=== PATIENT | male | born 1945 | race Caucasian/White ===

== ENCOUNTER 2025-02-04 12:01 | Inpatient (IN) | payer MEDICARE, SELFPAY ==
[2025-02-04] VITALS (7 sets, daily range): BP systolic 110–117; BP diastolic 73–82; PULSE 93–112; RESP 18–26; TEMP 36.1–36.6; O2SAT 94–99; BMI 25.8
--- NOTE | 2025-02-04 12:05 | EKG_ITS ---
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
--- NOTE | 2025-02-04 12:27 | EDRME_ITS ---
Rapid Medical Screening Exam RME Arrival date/time: 02/04/25 12:01 87-year-old male with no known medical history presents to the emergency room with a chief complaint of shortness of breath x 3 days. Patient states he was seen at [facility] today and was sent to the emergency room due to an abnormal EKG. I have greeted and performed a focused initial assessment of this patient. A comprehensive ED assessment and evaluation of the patient, analysis of all test results, and completion of the medical decision making process will be conducted by additional ED providers. Chief Complaint: Shortness of Breath/Dyspnea Time Seen by Provider: 02/04/25 12:23 Vital signs reviewed by provider: Yes
--- NOTE | 2025-02-04 12:27 | XR_ITS ---
EXAMINATION: PA lateral chest 2 views TECHNIQUE: Upright PA lateral chest 2 views Date and time: February 04, 2025, 12:33 p.m. INDICATIONS: Chest pain today FINDINGS: Early bibasilar pneumonia. Normal heart size. The osseous structures are intact IMPRESSION: Early pneumonia both bases
[2025-02-04 13:18] LABS: Basophils # (Auto) 0.0 Thou/mm3 (0.0-0.2); Basophils % (Auto) 0 % (0-2.5); Eosinophils # (Auto) 0.0 Thou/mm3 (0.0-0.5); Eosinophils % (Auto) 0 % (0-10); Hematocrit 40.3 % (41.0-53.0); Hemoglobin 13.8 g/dL (13.5-16.0); Immature Granulocytes Auto 0.02 Thou/mm3 (0.00-0.00); Lymphocytes # (Auto) 0.8 Thou/mm3 (1.0-4.8); Lymphocytes % (Auto) 8 % (10-50); Mean Corpuscular HGB Conc 34.2 g/dl (31.0-37.0); Mean Corpuscular Hemoglobin 33.2 pg (25.0-35.0); Mean Corpuscular Volume 97 fL (80-100); Monocytes # (Auto) 0.5 Thou/mm3 (0.0-0.8); Monocytes % (Auto) 5 % (0-12); Neutrophils # (Auto) 8.0 Thou/mm3 (1.8-7.7); Neutrophils % (Auto) 86 % (37-80); Nucleated Red Blood Cell # 0.00 Thou/mm3 (0.00-0.00); Nucleated Red Blood Cell % 0 /100 WBC (0); Platelet Count 168 Thou/mm3 (140-440); RDW Standard Deviation 48.1 fL (35.1-43.9); Red Blood Count 4.16 Miln/mm3 (4.50-5.90); White Blood Count 9.3 Thou/mm3 (3.8-10.6)
[2025-02-04 13:34] LABS: Collection Type, Urine Clean Catch
[2025-02-04 13:37] LABS: INR 1.1 (0.9-1.3); Partial Thromboplastin Time 29.6 Seconds (22.0-36.0); Prothrombin Time 11.7 Seconds (9.0-12.2)
[2025-02-04 13:46] LABS: Alanine Aminotransferase 38 U/L (10-49); Albumin, Serum 4.9 gm/dL (3.4-4.8); Albumin/Globulin Ratio 1.7 (1.2-2.2); Alkaline Phosphatase 67 U/L (46-116); Anion Gap 18 (7-16); Aspartate Amino Transferase 88 U/L (0-34); BUN/Creatinine Ratio 15 Ratio (12-20); Bilirubin,Total 1.1 mg/dL (0.3-1.2); Blood Urea Nitrogen 18 mg/dL (9-23); Calcium 11.6 mg/dL (8.3-10.6); Calcium (Corrected) 11.6 mg/dL (8.5-10.1); Carbon Dioxide 16.2 mMol/L (20.0-31.0); Chloride 102 mMol/L (98-107); Creatinine (Component) 1.2 mg/dL (0.6-1.3); Estimated Creatinine Clearance 49.1 mL/min (>60); Globulin 2.9 gm/dL (2.3-3.5); Glucose 233 mg/dL (74-106); Magnesium 2.1 mg/dL (1.6-2.6); Osmolality,Calculated 280 (275-295); Potassium 5.0 mMol/L (3.4-5.1); Sodium 136 mMol/L (136-145); Total Protein 7.8 gm/dL (5.7-8.2); eGFR > 60 See Note
[2025-02-04 13:49] LABS: Troponin I 21.328 ng/mL (0.0-0.045)
[2025-02-04 14:07] LABS: Ferritin 290 ng/mL (10.5-307.3)
[2025-02-04 14:21] LABS: B-Type Natriuretic Peptide 2339 pg/mL (0-100)
[2025-02-04 14:23] LABS: Bilirubin,Urine 1+ (Negative); Blood,Urine Negative (Negative); Clarity,Urine Clear (Clear/Hazy); Color,Urine Yellow (Lt Yel-Yel); Culture Indicated,Urine Not Indicated; Glucose, Urine Trace (Negative); Hyaline Casts,Urine 3 /hpf (0-1); Ketones,Urine 2+ (Negative); Nitrite,Urine Negative (Negative); PH,Urine 6.0 (5.0-7.0); Protein,Urine 1+ (Neg - Trace); RBC,Urine 9 /hpf (0-3); Specific Gravity,Urine 1.034 (1.001-1.035); Squamous Epithelial Cell,Urine < 1 /hpf (0-5); Urobilinogen,Urine 3.0 mg/dL (0.0-1.0); WBC,Urine 1 /hpf (0-5)
[2025-02-04 14:31] LABS: Leukocyte Esterase,Urine Negative (Negative)
--- NOTE | 2025-02-04 15:00 | PD.EDSOB ---
ED SOB =RME/HPI General Chief Complaint: Shortness of Breath/Dyspnea Stated Complaint: DIFF BREATHING X 4 D, ABNORMAL EKG AT CLINIC TODAY Time Seen by Provider: 02/04/25 12:23 Arrival date/time: 02/04/25 12:01 RME / HPI RME / HPI Narrative: 02/04/25 12:01 87-year-old male with no known medical history presents to the emergency room with a chief complaint of shortness of breath x 3 days. Patient states he was seen at [facility] today and was sent to the emergency room due to an abnormal EKG. I have greeted and performed a focused initial assessment of this patient. A comprehensive ED assessment and evaluation of the patient, analysis of all test results, and completion of the medical decision making process will be conducted by additional ED providers. DR. BRIAN MAIN ED EVALUATION 79 year old male with history of diabetes presents to the ED for evaluation of shortness of breath and chest pain today. Patient mentioned his shortness of breath began intermittently 2 months ago and worsening in the last 4 days. The chest pain started concurrently with the worsening shortness of breath and is described as an aching sensation located across the chest. Described as aching in sensation, rating as mild-moderate. Additionally, the patient complains of generalized body aches, difficulty sleeping, and a decreased appetite. He is concerned about a possible iron overload, noting that he has been taking an iron supplement and recently started a multivitamin that also contains iron. Patient mentions he consulted with his PCP who performed an EKG in the office and advised to come to the ED for abnormal findings. Denies any fevers, chills, cough, headache, changes in vision, abdominal pain, n/v/d, constipation, leg pain, or urinary symptoms. Patent states he was previously on Metformin. However, states his diabetes is now diet controlled. Related Data Allergies Allergy/AdvReac Type Severity Reaction Status Date / Time No Known Allergies Allergy Verified 02/04/25 12:04 Review of Systems Review of Systems Systems Reviewed: All systems reviewed, normal except as documented Past Medical History Past Medical History ENDOCRINE: Positive Diabetes Mellitus Type 2 Surgical History SURGICAL: Positive of Shoulder Sx and Knee Sx Social History SMOKING STATUS: Never smoker ED Exam Narrative Physical exam: Constitutional: Awake, alert, nontoxic, no acute distress, appears slightly pale HEENT: Normocephalic, atraumatic, extraocular movements intact. Neck: Supple CV: Regular rate and rhythm, no murmurs/rubs/gallops Lungs: Clear to auscultation BL, no respiratory distress. Abd: Soft, NT, ND, no HSM noted to palpation Extremities: No deformities, no edema noted Neuro: AAOx3, CN 2-12 GIBL, no acute neuro deficit noted. Skin: Warm, dry, intact, slightly pale Course Course Course Narrative: 1535h: The patient has early pneumonia noted on chest xray. Labs reviewed and patient has significantly elevated troponin at 21.328 as well as BNP at 2,339. Carbon dioxide low at 16.2 and Anion gap is high at 18 consistent with high anion gap metabolic acidosis. Calcium elevated at 11.6. EKG with nonspecific EKG abnormalities. Added doses of antibiotics as well as heparin drip. 1544h: I spoke with hospitalist team C for admission. 1547h: I spoke with installation coordinator Dr. Aviles. Discussed patients PMHx, HPI, ED course, exam findings, labs, and radiology results. States he will evaluate the patient in the ED. Quality Measures none Orders Category Date Time Status EKG (ED ONLY) *Do not use* NOW Care 02/04/25 12:05 Completed Notify provider NOW Care 02/04/25 15:41 Active EKG (ED Only) Stat Exams 02/04/25 12:05 Draft XR chest 2V Stat Exams 02/04/25 12:27 Completed B-Type Natriuretic Peptide Stat Lab 02/04/25 13:45 Completed CBC Stat Lab 02/04/25 12:58 Completed Comprehensive Metabolic Panel Stat Lab 02/04/25 12:58 Completed Ferritin Stat Lab 02/04/25 12:58 Completed Magnesium Stat Lab 02/04/25 12:58 Completed PTT [Partial Thromboplastin Time] Stat Lab 02/04/25 22:00 Ordered Partial Thromboplastin Time Stat Lab 02/04/25 12:58 Completed Procalcitonin Stat Lab 02/04/25 13:12 Completed Prothrombin Time with INR Stat Lab 02/04/25 12:58 Completed Troponin I Stat Lab 02/04/25 12:58 Completed Urinalysis, C/S if Indicated Stat Lab 02/04/25 13:23 Completed Azithromycin Inj [Zithromax Inj] 500 mg Med 02/04/25 15:38 Discontinued Sodium Chloride 0.9% 250 ml [Ns] 250 ml IV X1 Heparin Inj Med 02/04/25 15:41 Discontinued 4,000 unit IV X1 ONE Heparin/D5w 25K 250 ML Ivpb [Heparin in D5w Ivpb] Med 02/04/25 15:45 Active 25,000 unit in 250 ml IV 12 units/kg/hr cefTRIAXone/D5w 1gm IV premix [Rocephin/D5w 1gm IV Med 02/04/25 15:38 Discontinued premix] 1 gm in 50 ml IV X1 Vital Signs Vital signs: Vital Signs Temperature 98 F 02/04/25 12:35 Pulse Rate 96 02/04/25 12:35 Respiratory Rate 18 02/04/25 12:35 Blood Pressure 111/73 02/04/25 12:35 Pulse Oximetry (%) 99 02/04/25 12:35 Oxygen Delivery Method Room Air 02/04/25 12:35 Pulse ox is 99% on room air which is adequate. Shortness of Breath / Dyspnea MDM Narrative MDM Narrative:: Emelina Saeed am scribing for and in the presence of Dr. Brian. Patient data External records reviewed:: [facility] previous records Clinical information provided by:: patient Social determinants that could affect healthcare access:: none Patient has the following chronic illnesses:: Diabetes How is presenting disease/condition affected by chronic disease/condition?: uneffected by Evaluation data The following diagnostics were reviewed and interpreted by me:: lab results, radiology exam(s) and EKG tracing(s) (EKG @ 12:27p. Sinus rhythm with occasional PVCs, rate 99, nonspecific T-wave abnormalities with flipped T-wave in v5) Lab and/or radiology exams considered but not ordered:: None Interpretation Summary: Ordering Physician: Pierce Olivas Date of Service: 02/04/25 Procedure(s): XR chest 2V Accession Number(s): [id number] cc: Pierce Olivas; Fox Buenrostro MD~ EXAMINATION: PA lateral chest 2 views TECHNIQUE: Upright PA lateral chest 2 views Date and time: February 04, 2025, 12:33 p.m. INDICATIONS: Chest pain today FINDINGS: Early bibasilar pneumonia. Normal heart size. The osseous structures are intact IMPRESSION: Early pneumonia both bases Dictated By: Fox Buenrostro MD Signed By: <Electronically signed by Fox Buenrostro MD in OV> 02/04/25 1257 Medications / Prescriptions Medications or Prescriptions considered but not ordered:: None Medication administrations:: Medication Administration History Heparin Sodium/Dextrose (Heparin In D5w Ivpb) 25,000 unit in 250 mls @ 9.525 mls/hr IV .Q24H MARCELINO; Protocol Stop: 02/18/25 15:44 Last Admin: 02/04/25 16:10 Dose: 12 units/kg/hr, 9.525 mls/hr Documented By: GM Co-signed By: ED Discontinued Medications Heparin Sodium (Porcine) (Heparin Sod Inj 5000 Unit/Ml Vial) 4,000 unit IV X1 ONE; Protocol Stop: 02/04/25 15:42 Last Admin: 02/04/25 16:06 Dose: 4,000 unit Documented By: GM Co-signed By: ED Ceftriaxone Sodium/Dextrose (Rocephin/D5w 1gm Iv Premix) 1 gm in 50 mls @ 100 mls/hr IV X1 ONE Stop: 02/04/25 16:07 Last Infusion: 02/04/25 16:44 Dose: Infused Documented By: Admin: 02/04/25 16:10 Dose: 100 mls/hr Documented By: GM Azithromycin 500 mg/ Sodium (Chloride) 250 mls @ 250 mls/hr IV X1 ONE Stop: 02/04/25 16:37 Last Admin: 02/04/25 16:52 Dose: 250 mls/hr Documented By: GM See above Consultations Consultation(s) initiated? (list below): Yes Consultation #1 (Physician, Specialty, Details): See course Diagnosis Shortness of Breath Differential Diagnosis: acute exacerbation of chronic obstructive airways disease, congestive heart failure and community acquired pneumonia Most likely diagnosis given after review of the tests above:: NSTEMI Admission Indicated Admission indicated?: indicated Admission Request Was there a request for admission?: Yes Admission Attestation Admission request attestation: Discussed case with [] from Hospitalist service regarding admission. Discussed patients ED course, exam findings, labs, and radiology results. The Hospitalist [agrees,declines] to accept the patient for admission. Disposition Plan Disposition Plan: Admit Critical Care Time Critical Care Time Critical Care Time: Yes Total Critical Care Time (min.): 35 Attestation: The high probability of sudden, clinically significant deterioration in the patient's condition required the highest level of my preparedness to intervene urgently. The services I provided to this patient were to treat and/or prevent clinically significant deterioration. Services included the following: chart data review, reviewing nursing notes and/or old charts, documentation time, budget consultant collaboration regarding findings and treatment options, medication orders and management, direct patient care, vital sign assessments and ordering, interpreting and reviewing diagnostic studies and lab tests. Aggregate critical care time includes only time during which I was engaged in work directly related to the patient's care, as described above, whether at bedside or elsewhere in the Emergency Department. It did not include time spent performing other reported procedures or the services of residents, students, nurses or physician assistants. Discharge Plan Plan Patient Disposition: Admit Acute Care w/in Hospital Prescriptions/Referrals Referrals: Aydin Wallace MD [Primary Care Provider, Family Practice] - In 1 week Problem List Clinical Impression: Non-ST elevation ME (NSTEMI), Pneumonia Patient/Caregiver Discharge Instructions Print Language: Romansh Stand Alone Forms: [facility] Award Info., Patient Portal Info Letter
[2025-02-04] MEDS: HEPARIN SOD INJ 5000 UNIT/ML VIAL 4000 UNIT IV ×2 (16:06→23:31)
[2025-02-04 16:10] LABS: Procalcitonin 0.09 ng/ml (0.0-0.49)
[2025-02-04] MEDS: Heparin/D5w 25K 250 ML Ivpb 25,000 UNIT/250 ML BAG 9.525 UNIT IV (16:10)
[2025-02-04] MEDS: cefTRIAXone/D5w 1gm IV premix 1 GM/50 ML BAG IV (16:10)
[2025-02-04] MEDS: AZITHROMYCIN INJ 500 MG in SODIUM CHLORIDE 0.9% 250 ML 250 ML 250 MG IV (16:52)
--- NOTE | 2025-02-04 17:45 | ESCONSULT_ITS ---
HPI Data of Consult Primary Care Provider: Aydin Wallace MD Consult Narrative History of present illness: Patient is an 79 year old male with PMH of diabetes, HTN, remote history of panic attacks, OA, and chronic back pain who presents on 02/04 for worsening shortness of breath for the past 4 days. Used to be able to walk on the treadmill for 20 minutes, has only last 3-4 minutes as most for the past few days. Also endorses pain with deep inspiration. Denies chest pain, chest tightness, or chest pressure. Also reports intermittent lightheadedness for the past few years, happens when he's walking, episodes only last for a few seconds before resolving. Denies worsening with positional changes and head movement. Denies LOC or falls. Reports that he drinks at least 3 L water daily but has decreased appetite and overall oral intake for the past 3 days. Last ate 3 pieces of salami around 7PM last night. Sleeps with 2-3 pillows at night sometimes, usually sleeps in recliner due to back pain, Has had decreased sleep for the past 3-4 days as well due to panic attacks, gasping for air (PND?). Denies orthopnea and leg swelling. Denies any fevers, chills, cough, n/v/d. Has not seen a PCP in many years, only went to [facility] today due to worsening shortness of breath. EKG in office was abnormal and was referred to ED. Previously saw pure culture operator 15 years ago in [place], had cath done and was told that his coronary arteries were completely clean. In the ED, troponins elevated at 21, repeat trponin 5 hours later were negative, pending repeat. BNP 2330. EKG shows Q waves with minimal <[address] elevations in leads V1-V3. Frequent PVCs. Minimal ST depressions <1 mm in leads I, aVL, V5-V6. Upon review of CXR, no pneumonia noted. Will give IV Lasix 40 x1 for possible vascular congestion. Past Medical History: as above Family History: Mother had Alzheimer's, passed in her 90s. Brother had heart condition but not sure what kind. Surgical History: Bilateral knee and shoulder repairs Social History: Smoked 1.5 PPD for about 15 years, quit 55 years ago. Drank a bottle of beer twice a week since he was 20, quit 5 years ago. Denies recreational drug use. 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 [place] . Has an adopted daughter. Current Medications: fish oil, resveratrol, and arginine citrulline. Was previously on Metformin but diabetes now diet controlled. Allergies: No known drug allergies cc:: cc: Exam Vital Signs Temp Pulse Resp BP Pulse Ox O2 Del Method 96.9 F 94 20 114/78 94 L Room Air 02/04/25 16:59 02/04/25 16:59 02/04/25 16:59 02/04/25 16:59 02/04/25 16:59 02/04/25 16:59 Narrative Exam Physical Exam General: Awake and in no acute distress. Conversational and non-toxic appearing. Pleasant elderly male. HEENT: Normocephalic, atraumatic, mucous membranes moist. Heart: Tachycardic. Regular rate and rhythm, normal S1 and S2, no murmurs. Lungs: Clear to auscultation with no wheezing or crackles. Abdomen: Soft, nondistended, nontender, positive bowel sounds. No guarding or rebound tenderness. Neurologic: Alert and oriented x3, no gross neurological deficit, and patient able to move all 4 extremities. Extremities: No edema. Skin: No rash or ecchymoses. Results Labs 02/04/25 12:58 02/04/25 12:58 Labs: Short CBC 02/04/25 Range/Units 12:58 WBC 9.3 (3.8-10.6) Thou/mm3 Hgb 13.8 (13.5-16.0) g/dL Hct 40.3 L (41.0-53.0) % Plt Count 168 (140-440) Thou/mm3 BMP 02/04/25 12:58 Sodium 136 Potassium 5.0 Chloride 102 Carbon Dioxide 16.2 L BUN 18 Creatinine 1.2 Glucose 233 H Calcium 11.6 H Cardiac Enzymes 02/04/25 Range/Units 12:58 Troponin I 21.328 H* (0.0-0.045) ng/mL Liver Function 02/04/25 Range/Units 12:58 Total Bilirubin 1.1 (0.3-1.2) mg/dL AST 88 H (0-34) U/L ALT 38 (10-49) U/L Alkaline Phosphatase 67 (46-116) U/L Albumin 4.9 H (3.4-4.8) gm/dL Urine 02/04/25 Range/Units 13:23 Urine Color Yellow (Lt Yel-Yel) Urine Clarity Clear (Clear/Hazy) Urine pH 6.0 (5.0-7.0) Ur Specific [place] 1.034 (1.001-1.035) Urine Protein 1+ A (Neg - Trace) Urine Glucose (UA) Trace (Negative) Quality Measures Quality Measures none Advance care planning discussed with:: patient Medications Home Medications and Allergies Allergies Allergy/AdvReac Type Severity Reaction Status Date / Time No Known Allergies Allergy Verified 02/04/25 12:04 Visit Medications Heparin Sodium/Dextrose (Heparin In D5w Ivpb) 25,000 unit in 250 mls @ 9.525 mls/hr IV .Q24H MARCELINO; Protocol Stop: 02/18/25 15:44 Last Admin: 02/04/25 16:10 Dose: 12 units/kg/hr, 9.525 mls/hr Discontinued Medications Heparin Sodium (Porcine) (Heparin Sod Inj 5000 Unit/Ml Vial) 4,000 unit IV X1 ONE; Protocol Stop: 02/04/25 15:42 Last Admin: 02/04/25 16:06 Dose: 4,000 unit Ceftriaxone Sodium/Dextrose (Rocephin/D5w 1gm Iv Premix) 1 gm in 50 mls @ 100 mls/hr IV X1 ONE Stop: 02/04/25 16:07 Last Infusion: 02/04/25 16:44 Dose: Infused Azithromycin 500 mg/ Sodium (Chloride) 250 mls @ 250 mls/hr IV X1 ONE Stop: 02/04/25 16:37 Last Admin: 02/04/25 16:52 Dose: 250 mls/hr Assessment & Plan Plan Patient is an 79 year old male with PMH of diabetes, HTN (never medicated), remote history of panic attacks, OA, and chronic back pain who presents on 02/04 for worsening shortness of breath for the past 3-4 days and new onset chest pain, admitted for STEMI with elevated troponins. #NSTEMI type 1 #Late presenting KS given the q waves with minimal ST elvation < 1 mm and decreasing troponins. # ?New onset CHF Presented with worsening shortness of breath for the past 3-4 days. Pain with deep inspiration but denies chest pain, chest pressure, or chest tightness. BP 111/73 HR 96 -> 117, saturating well on room air. No lower extremity swelling on exam. Troponin 21, repeat 5 hours later was negative, repeat 19.88. BNP 2339. No known history of HF. EKG showed Q waves with minimal <[address] elevations in leads V1-V3. Frequent PVCs. Minimal ST depressions <1 mm in leads I, aVL, V5-V6. S/p IV Lasix 40 x1 however appears that patient is dehydrated (has not much fluid or oral intake for the past 3-4 days). - Plan for cardiac cath tomorrow - Trend troponins q6hr until downtrends - Cardiac echo stat, will complete tomorrow morning - Nitroglycerin as needed for chest pain - Ordered lipid panel, Hemoglobin A1c, TSH and T4 - Adequate hydration until 3AM, some sips of water acceptable prior to cath - NPO after 3AM - Continue to trend troponins every 6 hours until downtrend is noted. Heparin drip for anticoagulation given concern of ACS. Recommend aspirin 325 mg x 1, aspirin 81 mg once daily and high intensity statin. Beta arturo if hemodynamically stable. Oxygen as needed and pain control with morphine if needed. Echo ordered to rule out any regional wall motion abnormalities, evaluate LV function, RV function, diastolic function and any valvular abnormalities. Check TSH A1c and lipid profile for further cardiac risk stratification. Given his risk factors including age, hypertension, hyperlipidemia, smoking, diabetes mellitus, patient is at increased risk for CAD and will need further ischemic evaluation. Discussed the risk and patient alternatives of performing the cardiac catheterization including the risk of bleeding, patient and family heart attack, stroke and in detail with the. Patient agreeable for the procedure and provided the consent for the same. Will keep the patient n.p.o. overnight and plan for cardiac catheterization tomorrow morning. # ? PNA Presenting with shortness of breath but denies fever, chills, and cough. No recent sick contacts. WBC WNL, procal negative. Lactic acid 4.3. CXR showed possible early PNA but upon review appears to be clear. - Treating empirically w abx by primary team #DM2 Fasting glucose at home 101. Checks about every 1-2 weeks. Previously on metformin but now controlled on low carb diet. - Diet low carb consistent - NPO instructions above #OA #Chronic back pain - Tylenol as needed #HTN #Remote history of panic attacks Not on any meds. Thank you for your consultation, please do not hesitate to reach out if you have any question or concern Patient plan of care was discussed with the attending physician, Dr. Aviles. Beatrice Ann, PGY-1 Attending Provider Attestation/Addendum I have personally seen and examined the patient separately on the above date of service and discussed the plan of care with the resident. I reviewed the resident Dr. Beatrice Ann consultation progress note and agree with the resident findings and plan in the note above and have also edited the documentation to reflect my findings and plan. Johnathon Aviles M.D. Interventional Cardiology
[2025-02-04] MEDS: FUROSEMIDE INJ 10 MG/ML 4ML VIAL 40 MG IVP (18:06)
--- NOTE | 2025-02-04 18:06 | ECHO_ITS ---
Transthoracic Echo Report Ht (in): 69 Wt (lb): 175 Exam Location: [facility] Status: Inpatient Shipping/Receiving Clerk: Lisa Simeon Indications: Procedure Performed: BP: 101 / 73 HR: 104 MEASUREMENTS (Male / Female) Normal Values 2D ECHO LV Diastolic Diameter PLAX 5.5 cm 4.2 - 5.9 / 3.9 - 5.3 cm LV Systolic Diameter PLAX 4.6 cm IVS Diastolic Thickness 1.0 cm 0.6 - 1.0 / 0.6 - 0.9 cm LVPW Diastolic Thickness 1.0 cm 0.6 - 1.0 / 0.6 - 0.9 cm LV Relative Wall Thickness 0.4 LVOT Diameter 2.0 cm LA Volume Index 30.8 cm?/m? 16 - 28 cm?/m? Ascending Aorta Diameter 3.1 cm M-MODE AV Cusp Separation MM 0.8 cm DOPPLER AV Peak Velocity 169.0 cm/s AV Peak Gradient 11.4 mmHg AV Mean Gradient 5.0 mmHg AV Velocity Time Integral 27.8 cm LVOT Peak Velocity 80.9 cm/s LVOT Peak Gradient 2.6 mmHg LVOT Velocity Time Integral 15.2 cm LVOT Cardiac Index 2511.9 cm?/min?m? AV Area Cont Eq vti 1.7 cm? AV Area Cont Eq pk 1.5 cm? MV Area PHT 10.0 cm? Mitral E Point Velocity 58.7 cm/s Mitral A Point Velocity 82.7 cm/s Mitral E to A Ratio 0.7 LV E' Lateral Velocity 5.1 cm/s Mitral E to LV E' Lateral Ratio 11.5 LV E' Septal Velocity 4.6 cm/s Mitral E to LV E' Septal Ratio 12.8 TR Peak Velocity 222.0 cm/s TR Peak Gradient 19.7 mmHg PV Peak Velocity 81.4 cm/s PV Peak Gradient 2.7 mmHg FINDINGS Left Ventricle Normal left ventricular size and wall thickness. There is global left ventricular hypokinesis. Global left ventricular systolic function is severely decreased. There is grade III diastolic dysfunction of the left ventricle (restrictive filling pattern). The ejection fraction is visually estimated at 20-25%. Right Ventricle There is global right ventricular hypokinesis. The right ventricular systolic function is moderately decreased. The estimated right ventricular systolic pressure, 29 mmHg with RAP 3. Left Atrium The left atrial cavity size is moderately increased. Right Atrium The right atrium is normal by two-dimensional imaging, color flow and Doppler imaging with no structural abnormalities, no thrombus formation present. Atrial Septum The interatrial septum appears normal with no evidence of a shunt. Aorta The aorta is normal by two-dimensional, color flow and Doppler interrogation. Mitral Valve Mild mitral annular calcification. [id number] mitral regurgitation. Aortic Valve Aortic valve sclerosis without stenosis.mild aortic valve regurgitation. Tricuspid Valve The tricuspid valve is normal by two-dimensional, color flow and Doppler interrogation. There is mild tricuspid valve regurgitation. Pulmonic Valve The pulmonic valve is not well visualized. There is no significant pulmonic valve regurgitation. Vessels The pulmonary artery appears normal. The inferior vena cava pulmonary and hepatic veins appear normal. Pericardium The pericardium is normal by two-dimensional imaging. There is no significant pericardial effusion. CONCLUSIONS Indication: NSTEMI Normal LV size. Severely decreased LV function with an EF of around 20 to 25%. Akinetic apex with severe hypokinesis of the mid to apical anterior, anterolateral, apical septal and inferior olvera. Takotsubo picture versus LAD disease. Diastolic dysfunction grade 1. Normal RV size and function. Normal RVSP 29 mmHg with RAP 3. Moderately dilated LA. Normal RA size. No pericardial effusion. Mild mitral annular calcification with mild to moderate MR Mild aortic valve sclerosis without stenosis. Mild tricuspid regurgitation and trace aortic valve regurgitation.. Johnathon Aviles (Electronically Signed) Final Date: 05 February 2025 16:50
[2025-02-04 18:20] LABS: Troponin I < 0.020 ng/mL (0.0-0.045)
--- NOTE | 2025-02-04 18:31 | ESHP_ITS ---
<Statement entered by Deandre Calix MD - 02/04/25 20:01> 79 y/o M with PMH of DM was admitted to the hospital due to NSTEMI type I vs II. PAtient had been having SOB for the past 3-4 days with some chest discomfort. He states the chest discomfort was only associated with breathing and did not describe it as either sharp or pressure like. He stated in the past had a heart cath and stated his arteries were clean. Trops came back above 21 and BNP above 2k.EKG showed some T wave inversions with possible ST depressions. ED spoke to cardiology and recommended admission for possible heart cath. In summary: #NSTEMI type I vs II Heparin drip per ACS protocol, echo, ASA, trend trops, cardiology on board #CAP seen on CXR continue Marc and concepcion I have reviewed the note and agree with the resident's assessment & plan with exceptions as above. I have personally reviewed labs, imaging, home meds/prior records, examined the patient, formulated and discussed management plan with my attending Deandre Calix PGY2 Disclaimer: Even though this this note was dictated by speech recognition and even though it was carefully revised there may still be minor errors in field service specialist due to voice recognition software. Documentation for date of: 02/04/25 HPI History of Present Illness Chief complaint: SOB History of present illness: Lobito Boswell 79M pmhx significant for diabetes (diet controlled) who presents with 5 days of shortness of breath. Patient endorses progressively worsening shortness of breath, feeling short of breath when putting on a T-shirt and walking 5 feet. Endorses orthopnea for the past 5 days with PND, unable to sleep on Tuesday at all due to shortness of breath. Denies any chest pain chest tightness or chest pressure whatsoever. However on deep inspiration, patient does endorse sternal chest pain. Chest pain is not reproducible with supine position for palpation. Patient endorses recent runny nose likely secondary to weather change and denies fever, chills or viral illness. Patient reports that he sees a PCP only once in a while and on a regular basis. Does not see any specialist physicians. However does report that about 15 years ago did have a cardiac catheterization with clean arteries . Denies urinary symptoms, abdominal pain, or nausea vomiting diarrhea. PMHx: as above Surgical Hx: bilateral shoulder repairs, bilateral knee repairs FHx: Noncontributory, father alcoholic Social Hx: Quit smoking 50 years ago previously smoked few packs a day for 5 to 10 years. Previously drank socially but quit 6 years ago. Denies any illicit/recreational drug use. Allergies: NKDA Medications: Fish oil, resveratrol In ED, BP 111/71 HR 96 RR 18 afebrile saturating 99% RA, significant labs include bicarb 16.2, AG 18, Cr 1.2, Ca 11.6, troponin 21-> <0.020, BNP 2339, procal 0.09. In ED, given heparin drip, ceftriaxone and azithromycin, lasix 40 x1, ASA 325 x1, pantoprazole 40 mg x1. EKG shows Q waves with minimal <[address] elevations in leads V1-V3. Frequent PVCs. Minimal ST depressions <1 mm in leads I, aVL, V5-V6. CXR early PNA both bases, cardiology consulted. Patient was admitted for further workup and management of NSTEMI. Review of Systems Review of Systems Systems Reviewed: All systems reviewed, normal except as documented Exam Vital Signs Temp Pulse Resp BP Pulse Ox O2 Del Method 97.0 F 111 H 21 H 110/75 95 Room Air 02/04/25 18:11 02/04/25 18:11 02/04/25 18:11 02/04/25 18:11 02/04/25 18:11 02/04/25 18:11 Narrative Exam GENERAL: AOx3, no acute distress HEENT: mucous membranes moist, bilateral sclera anicteric CARDIOVASCULAR: regular rate and rhythm, S1/S2 present, no murmurs appreciated PULMONARY: clear to auscultation bilaterally, no rales/rhonchi/wheezes ABDOMINAL: soft, non-tender, non-distended, no rebound/guarding, bowel sounds present EXTREMITIES: no peripheral edema SKIN: warm and dry, intact, no rashes NEURO: CN II-XII grossly intact, no focal deficits, alert, following commands Results: Labs 02/04/25 12:58 02/04/25 12:58 Labs: Short CBC 02/04/25 Range/Units 12:58 WBC 9.3 (3.8-10.6) Thou/mm3 Hgb 13.8 (13.5-16.0) g/dL Hct 40.3 L (41.0-53.0) % Plt Count 168 (140-440) Thou/mm3 BMP 02/04/25 12:58 Sodium 136 Potassium 5.0 Chloride 102 Carbon Dioxide 16.2 L BUN 18 Creatinine 1.2 Glucose 233 H Calcium 11.6 H Cardiac Enzymes 02/04/25 02/04/25 Range/Units 12:58 17:52 Troponin I 21.328 H* < 0.020 D (0.0-0.045) ng/mL Liver Function 02/04/25 Range/Units 12:58 Total Bilirubin 1.1 (0.3-1.2) mg/dL AST 88 H (0-34) U/L ALT 38 (10-49) U/L Alkaline Phosphatase 67 (46-116) U/L Albumin 4.9 H (3.4-4.8) gm/dL Urine 02/04/25 Range/Units 13:23 Urine Color Yellow (Lt Yel-Yel) Urine Clarity Clear (Clear/Hazy) Urine pH 6.0 (5.0-7.0) Ur Specific [place] 1.034 (1.001-1.035) Urine Protein 1+ A (Neg - Trace) Urine Glucose (UA) Trace (Negative) Quality Measures Quality Measures none Advance care planning discussed with:: patient Medications Home Medications and Allergies Allergies Allergy/AdvReac Type Severity Reaction Status Date / Time No Known Allergies Allergy Verified 02/04/25 12:04 Visit Medications Acetaminophen (Acetaminophen 325 Mg Tablet) 650 mg PO Q6H PRN PRN Reason: Fever >100.4 Stop: 03/06/25 18:05 Hydrocodone Bitart/Acetaminophen (Hydrocodone/Apap 5/325 Tablet) 1 tab PO Q4HR PRN PRN Reason: PAIN SCALE 4-6 (Moderate Stop: 02/09/25 18:05 Heparin Sodium/Dextrose (Heparin In D5w Ivpb) 25,000 unit in 250 mls @ 9.525 mls/hr IV .Q24H MARCELINO; Protocol Stop: 02/18/25 15:44 Last Admin: 02/04/25 16:10 Dose: 12 units/kg/hr, 9.525 mls/hr Azithromycin 500 mg/ Sodium (Chloride) 250 mls @ 250 mls/hr IV QDAY MARCELINO Stop: 02/12/25 08:59 Ceftriaxone Sodium/Dextrose (Rocephin/D5w 1gm Iv Premix) 1 gm in 50 mls @ 100 mls/hr IV X1 ONE Stop: 02/05/25 09:29 Ondansetron HCl (Ondansetron Inj 2 Mg/Ml Inj 2 Ml) 4 mg IVP Q6H PRN; Protocol PRN Reason: NAUSEA OR VOMITING Stop: 03/06/25 18:05 Pantoprazole Sodium (Pantoprazole Inj 40 Mg Vial) 40 mg IVP QDAY MARCELINO Stop: 03/06/25 18:14 Last Admin: 02/04/25 18:30 Dose: 40 mg Discontinued Medications Aspirin (Aspirin 325 Mg Tablet) 325 mg PO X1 ONE Stop: 02/04/25 18:13 Last Admin: 02/04/25 18:27 Dose: 325 mg Furosemide (Furosemide Inj 10 Mg/Ml 4ml Vial) 40 mg IVP X1 ONE Stop: 02/04/25 17:52 Last Admin: 02/04/25 18:06 Dose: 40 mg Heparin Sodium (Porcine) (Heparin Sod Inj 5000 Unit/Ml Vial) 4,000 unit IV X1 ONE; Protocol Stop: 02/04/25 15:42 Last Admin: 02/04/25 16:06 Dose: 4,000 unit Ceftriaxone Sodium/Dextrose (Rocephin/D5w 1gm Iv Premix) 1 gm in 50 mls @ 100 mls/hr IV X1 ONE Stop: 02/04/25 16:07 Last Infusion: 02/04/25 16:44 Dose: Infused Azithromycin 500 mg/ Sodium (Chloride) 250 mls @ 250 mls/hr IV X1 ONE Stop: 02/04/25 16:37 Last Infusion: 02/04/25 18:00 Dose: Infused Assessment & Plan Plan Lobito Boswell 79M pmhx significant for diabetes (diet controlled) who presents to [facility] ED on 02/04 with 5 days of shortness of breath, admitted for NSTEMI. #NSTEMI, type I vs type II Presented with acute worsening SOB, denies chest pain, pressure or tightness at rest or on exertion. Had clean cath ~15 years ago. Chest pain present with deep inspiration, midsternal, non radiating. Troponins 21 -> <0.020. BNP 2k. EKG shows Q waves with minimal <[address] elevations in leads V1-V3. Frequent PVCs. Minimal ST depressions <1 mm in leads I, aVL, V5-V6. Ddx: likely type I as patient does not have source of demand ischemia at this time except for possible early PNA and possible CHF. however this does not exclude type II entirely. Plan: - Cardiology consulted, recs appreciated: cath tomorrow - Heparin drip - s/p ASA 325 in ED and ASA 81 mg QD - F/u echo, TSH and lipid panel - Trend trops until downtrend - Tele for cardiac monitoring - Keep K>4 and Mg>2 at all times #Bilateral PNA, likely CAP Presented with SOB. Denied fever or URI. CXR early PNA both bases. Plan: - Azithromycin (02/04- and ceftriaxone (02/04- - Supplemental O2 to keep SpO2 <90% #NIDDM2 Diet controlled, per patient AM glucose 101. Plan: - F/u a1C - Consider SSI if glucose is significantly elevated Hospital management: Lines: PIV Diet: NPO after midnight Bowel: none GI prophylaxis: IV pantoprazole 40 mg QD DVT prophylaxis: heparin drip Disposition: tele, cath tomorrow CODE STATUS: FULL CODE Plan of care discussed with attending Dr. Byrd, and PGY-2 Dr. Dugan. Tamika Ann DO PGY-1 Internal Medicine Attending Provider Attestation/Addendum I or my resident physicians have discussed care with the ED physician and I have made the decision to admit. I have discussed and was present for the essential components of the history, physical examination, diagnosis, and treatment plan with the resident. I agree with the patient's care as documented by the resident and amended herein by me. Marc Byrd DO. Although this document has been carefully reviewed, there may still be some phonetic and other typographical errors. These errors are purely grammatical due to imperfections in the software program and should not be construed in any way to compromise the substance of the patient's medical care during this visit. Patient seen and evaluated in the ED. In short, 79-year-old male with a significant past medical history of diabetes that is well-controlled with diet, presented to the ED with shortness of breath which began approximately 5 days prior to admission. This has been slowly worsening. Also endorsed orthopnea and PND with interruptions in sleep. Patient denied any chest pain or chest pressure, he did endorse some URI symptoms such as rhinorrhea however denied any fevers, chills sick contacts etc. Patient's primary care physician is at [facility] however does not see them very often. Denied seeing any specialists. Stated he had a cardiac catheterization approximately 20 years ago however was clean at that time. In the ED, vital signs were stable the patient was afebrile upon admission., Patient was on room air in no apparent distress. CBC largely unremarkable, BMP significant for a bicarb of 16.2, anion gap 18, glucose 233, lactic acid 4.3, corrected calcium 11.6 AST 88, troponin 19.338 and a BNP of 2339. UA negative however did demonstrate 9 RBCs per high-power field. Chest x-ray was performed demonstrating early pneumonia in both bases. Cardiology was consulted, recommended starting heparin drip. EKG per my read demonstrated T wave inversions in lead V4, V5, V6, aVL, possible ST elevation in V3. Patient was in no apparent distress whatsoever at time of our bedside visit. Patient admitted to telemetry for ACS/NSTEMI type I, anion gap metabolic acidosis likely secondary to lactic acidosis, and suspected dehydration. Heparin drip started, patient given a dose of aspirin 325 mg and will continue 81 mg daily. Cardiology has been consulted, patient started on high-dose statin as well. Patient also started on ceftriaxone and azithromycin for pneumonia. Lipid panel A1c, TSH all ordered and pending. Strict I's and O's ordered, echo also ordered. We also give the patient a liter bolus for now, patient dry. Will continue to monitor closely, appreciate specialist recommendations.
[2025-02-04 20:02] LABS: Troponin I 19.338 ng/mL (0.0-0.045)
[2025-02-04 20:09] LABS: Lactate (Lactic Acid) 4.3 mMol/L (0.4-2.0)
[2025-02-04] MEDS: ATORVASTATIN CALCIUM 20 MG TABLET 80 MG PO (21:49)
[2025-02-04] MEDS: RINGERS LACTATED 1000 ML 1,000 ML 125 ML IV (21:51)
[2025-02-04 22:33] LABS: Reflex Lactate? Y
[2025-02-04 22:42] LABS: Lactic Acid, 3 HR 3.2 mMol/L (0.4-2.0)
[2025-02-04 22:59] LABS: Partial Thromboplastin Time 28.8 Seconds (22.0-36.0)
[2025-02-05] VITALS (16 sets, daily range): BP systolic 100–117; BP diastolic 62–91; PULSE 84–117; RESP 11–28; TEMP 36.1–37; O2SAT 92–99; BMI 26.4
[2025-02-05 06:03] LABS: Lactate (Lactic Acid) 3.0 mMol/L (0.4-2.0)
[2025-02-05 06:11] LABS: Basophils # (Auto) 0.0 Thou/mm3 (0.0-0.2); Basophils % (Auto) 0 % (0-2.5); Eosinophils # (Auto) 0.0 Thou/mm3 (0.0-0.5); Eosinophils % (Auto) 0 % (0-10); Hematocrit 38.2 % (41.0-53.0); Hemoglobin 13.0 g/dL (13.5-16.0); Immature Granulocytes Auto 0.01 Thou/mm3 (0.00-0.00); Lymphocytes # (Auto) 1.1 Thou/mm3 (1.0-4.8); Lymphocytes % (Auto) 14 % (10-50); Mean Corpuscular HGB Conc 34.0 g/dl (31.0-37.0); Mean Corpuscular Hemoglobin 33.3 pg (25.0-35.0); Mean Corpuscular Volume 98 fL (80-100); Monocytes # (Auto) 0.4 Thou/mm3 (0.0-0.8); Monocytes % (Auto) 5 % (0-12); Neutrophils # (Auto) 6.1 Thou/mm3 (1.8-7.7); Neutrophils % (Auto) 81 % (37-80); Nucleated Red Blood Cell # 0.00 Thou/mm3 (0.00-0.00); Nucleated Red Blood Cell % 0 /100 WBC (0); Platelet Count 127 Thou/mm3 (140-440); RDW Standard Deviation 49.4 fL (35.1-43.9); Red Blood Count 3.90 Miln/mm3 (4.50-5.90); White Blood Count 7.6 Thou/mm3 (3.8-10.6)
[2025-02-05 06:21] LABS: INR 1.1 (0.9-1.3); Partial Thromboplastin Time 47.8 Seconds (22.0-36.0); Prothrombin Time 12.1 Seconds (9.0-12.2)
[2025-02-05 06:35] LABS: Glucose Estimated Average 126 mg/dL (80-131); Hemoglobin A1C 6.0 % Hgb (4.8-6.0)
[2025-02-05] MEDS: HEPARIN SOD INJ 5000 UNIT/ML VIAL 2000 UNIT IV ×3 (06:41→16:27)
[2025-02-05 06:53] LABS: Alanine Aminotransferase 51 U/L (10-49); Albumin, Serum 4.7 gm/dL (3.4-4.8); Albumin/Globulin Ratio 1.8 (1.2-2.2); Anion Gap 17 (7-16); Aspartate Amino Transferase 73 U/L (0-34); BUN/Creatinine Ratio 29 Ratio (12-20); Bilirubin,Total 0.9 mg/dL (0.3-1.2); Blood Urea Nitrogen 32 mg/dL (9-23); Calcium 10.3 mg/dL (8.3-10.6); Calcium (Corrected) 10.3 mg/dL (8.5-10.1); Carbon Dioxide 19.3 mMol/L (20.0-31.0); Chloride 102 mMol/L (98-107); Creatinine (Component) 1.1 mg/dL (0.6-1.3); Estimated Creatinine Clearance 53.6 mL/min (>60); Globulin 2.6 gm/dL (2.3-3.5); Glucose 204 mg/dL (74-106); Magnesium 2.0 mg/dL (1.6-2.6); Osmolality,Calculated 288 (275-295); Phosphorous 3.5 mg/dL (2.4-5.1); Potassium 4.4 mMol/L (3.4-5.1); Sodium 138 mMol/L (136-145); Thyroid Stimulating Hormone 4.55 uIU/mL (0.55-4.78); Total Protein 7.3 gm/dL (5.7-8.2); eGFR > 60 See Note
[2025-02-05 08:35] LABS: Alkaline Phosphatase 101 U/L (46-116); Cardiac Risk Estimate 5.4 RATIO (4.0-6.7); Cholesterol 305 mg/dL (132-200); HDL Cholesterol 57 mg/dL (40-60); LDL Cholesterol,Calculated 230 mg/dL (0-130); Triglycerides 90 mg/dL (30-150)
[2025-02-05 08:59] LABS: Reflex Lactate? Y
[2025-02-05 11:29] LABS: Free T4 (Free Thyroxine) 1.46 ng/dL (0.89-1.76)
--- NOTE | 2025-02-05 11:32 | ESOP_ITS ---
Cardiac Cath Procedure Procedure Name Date of procedure: 02/05/2025 CT SCAN TECHNICIAN: Johnathon Aviles MD PROCEDURE PERFORMED: 1. Left heart cardiac catheterization- Left and right coronary angiograms with LVEDP measurement and left ventriculogram 2. Ultrasound-guided access of the right radial artery 3. Conscious sedation for 30 minutes. 4. Abdominal and pelvic Aortogram 5. Left subclavian angiogram Procedure Narrative HISTORY AND INDICATIONS: 79 year old male with PMH of diabetes, HTN (never medicated), remote history of panic attacks, OA, and chronic back pain who presents on 02/04 for worsening shortness of breath for the past 3-4 days, admitted for NSTEMI with elevated troponins. Initial troponins were elevated 21 and repeat troponins were 19. EKG showed Q waves with less than [address] elevations in leads V1 to V3, frequent PVCs and minimal ST depressions of less than 1 mm in leads I, aVL and V5 into V6. Patient did not complain of any chest pain and was hemodynamically stable. Patient had decreasing troponins with already Q waves and's shortness of breath for 3 days indicating late presenting WI. Decision was made to perform cardiac catheterization. Patient was explained the risk benefits and alternatives of performing a left heart cardiac cath eterization including the risk of bleeding, heart attack, stroke and in detail and the agreeable for the procedure. Consent signed, placed in the chart and H&P updated. DESCRIPTION OF PROCEDURE: The patient was brought to the cardiac catheterization lab and all asceptic precautions were followed. Patient was given 1 Mg of Versed and 50 mcg of fentanyl for moderate conscious sedation. 2 mL of lidocaine was given in the right wrist. The right radial artery was accessed via the ultrasound guidance as well as micropuncture technique. A 6 [place] glide sheath was introduced. We then used a 5 [place] TIG 4 catheter to perform the left and right coronary angiograms as well as a left ventriculogram which showed the following findings. 1. Left ventricular ejection fraction was severely decreased at 25 to 30% with akinesis of the apex as well as severe hypokinesis of the anterior and anterolateral as well as the inferior apical olvera. 2. LVEDP was severely elevated at 33 mmHg. There was no significant transvalvular aortic gradient. 3. Codominant circulation 4. Left main artery is a large size artery with mild calcification and mild diffuse disease. 5. LAD is a large size artery with severe 99% stenosis of proximal LAD prior to the septal with THOMAS II flow. D1 is a small to medium sized artery with severe 90% stenosis in the proximal segment. 6. LCx is a large sized artery with moderate to severe's 60 to 70% stenosis in proximal segment. Small OM1 with moderate disease. Distal LCx with mild disease and OM 2 as well as LPDA with also mild disease. 7. RCA is a large sized artery with STAFF ASSISTANT in the proximal portion with excellent right to right collaterals as well as yxls-to-difnq collaterals feeding up to the mid RCA. A radial band was used to achieve the hemostasis of the right radial artery access. Patient will be monitored in the cardiac case finisher for the next 2 to 3 hours and will be discharged home / telemetry later today if hemodynamically stable. Complications: None Specimens: None Blood loss: Estimated 5-10 ml Summary/findings: 1. NSTEMI with a peak troponin of 22. Late presenting WI: LHC showed severe multivessel disease with severe 99% stenosis of the LAD with THOMAS II to THOMAS-3 flow, severe 90% stenosis of small to medium proximal D1, moderate to severe 60 to 70% stenosis of the proximal LCx, 100% STAFF ASSISTANT occlusion of the proximal RCA with excellent right to right and dnfq-fk-[id number] collaterals. Rest of the arteries shows only mild disease. 2. LVEF is severely decreased at 25 to 30% with regional wall motion abnormalities as mentioned above. LVEDP severely elevated at 33 mmHg. There was no significant transvalvular aortic gradient. Recommendations: 1. Patient does have a history of hypertension diabetes mellitus and has severe multivessel disease and hence recommended surgery as the patient is hemodynamically stable.. Discussed with cardiothoracic surgeon Dr. Jasen Ortiz at [facility] for further evaluation of CABG. If patient is not a surgical candidate then plan to do high risk PCI with LVAD or left ventricular assist device-Impella to perform the multivessel PCI CABG and aggressive medical treatment and aggressive risk factor modification. 2. Recommend to restart the heparin drip in 4 hours and continue aspirin 81 mg once daily along with high intensity statin Lipitor 80 mg once daily. No beta- arturo for now. 3. Request urgent stat transfer to [facility] 4. Recommended no lifting more than 5 pounds for next 7-10 days and follow up in my office in 7 days. Johnathon Aviles MD Interventional Cardiology.
--- NOTE | 2025-02-05 12:03 | PC.CM ---
Addendum entered by Giana Sesay RN 02/05/25 19:18: 1730 Correction to note placed at 1655. Patients transport was set up at 1800 with [facility] and I faxed paperwork to [place]. Packet completed with CD of echo and ammunition assembly i laborer procedure on 1 disc and in transfer packet. There was a second CD with a chest xray. Patient was accepted to [facility] room 1409. Number to call and give report [phone]. Addendum entered by Giana Sesay RN 02/05/25 16:55: I set oyster picker for 1800 with [employer]. Completed packet with 1 CD given to ED charge nurse. Addendum entered by Giana Sesay RN 02/05/25 16:34: I spoke to Laine transfer nurse at [facility] and she states they got the okay from the [facility] so they want me to send discharge summary so they can work on a bed. I let Laine know that patient is having chest pain and needs to transfer as soon as possible. I called Dr. Dugan and asked that he do the discharge summary. Packet started and I made a CD. Addendum entered by Giana Sesay RN 02/05/25 13:34: 1310 I spoke to Cristela barriosfront of house manager at the [facility] in [place] phone # [phone]. I provided patient 's information and I let her know that Dr. Ortiz at [facility] is willing to accept patient. Patient is needing a CABG. Cristela states she will give authorization to have [facility] take patient because they cannot do the procedure at their facility. I called Laine at [facility] and provided the information. Laine states she will reach out to Cristela herself to get authorization. Addendum entered by Giana Sesay RN 02/05/25 12:49: 1230 I received a call back from Laine with the transfer center at [facility]. She states she did get my paperwork and request. She states since patient has [facility] insurance I need to reach out to the [facility] and see if they want patient to go to one of there facilities, or if they will give authorization for patient to go to [facility]. I called [facility] [phone] and I left a detailed message with transfer nurse Delia. I asked for a call back. Packet started and I made a CD. Original Note: [id number] I initiated transfer with [facility] and I faxed over paperwork. 0248 I received a call from DR. Noguera stating patient needs to be transferred to [facility] with Dr. David Ortiz for CABG. He states he spoke to DR. Otriz and he accepted patient. Dr. Noguera states he did not put in a transfer order. I called Dr. Renee and let him know patient needs to be transfer as per Dr. Noguera and I asked if he would please put in transfer orders.
[2025-02-05 12:14] LABS: Lactic Acid, 3 HR 3.0 mMol/L (0.4-2.0)
[2025-02-05 12:34] LABS: Partial Thromboplastin Time 40.6 Seconds (22.0-36.0)
--- NOTE | 2025-02-05 12:50 | PC.NURSE ---
Patient back from industrial laborer. patient awake, alert, and oriented, dressing to right wrist clean, dry, and intact. radial pulse palpable, patient denies pain.
--- NOTE | 2025-02-05 12:51 | PC.SS ---
Update: Transfer request initiated for CABG procedure.
--- NOTE | 2025-02-05 13:11 | PC.SS ---
LEADERSHIP RECRUITER conducted bedside contact with the patient conduct initial assessment and to discuss discharge planning.? Patient confirmed demographic information.? Patient resides at home with spouse, Annabelle Boswell .? Patient is retired.? Patient is a , [employer] Patient is aligned with [employer].? Patient does not utilize any form of DME to assist with ambulation.? Patient does not utilize home oxygen.? Patient describes the ability to complete ADL?s independently.? Patient identified spouse, Annabelle Boswell; as medical surrogate decision maker.? Patient?s PCP is Dr. Wallace, [facility].? Patient does not participate with dialysis.? Patient does not possess any specialty providers.? Plan is for the patient to return home at the time of discharge.? Spouse will provide transportation on behalf of the patient.? No further discharge needs identified by the patient.? No further intervention required at this time, social secretary will be available to address any further concerns.? Next of Kin: Annabelle Boswell D/C Plan: Home
[2025-02-05] MEDS: ASPIRIN EC 81 MG TABEC PO (13:35)
--- NOTE | 2025-02-05 14:07 | PC.NURSE ---
Report given to HAVEN Guaman. Pt transferred to tele via [facility]. Dressing to right wrist clean, dry, and intact.No signs of bleeding or hematoma.Nurse aware for Heparin drip to be restarted at 1445.
--- NOTE | 2025-02-05 14:24 | PC.SS ---
Rounding Note: Transfer initiated. [facility] has accepted. [facility].A. authorization is pending.
--- NOTE | 2025-02-05 15:00 | EKG_ITS ---
[facility] Test Date: 2025-02-05 Pat Name: KAILEE CAMACHO Department: Room: S271A Gender: Male Tour Consultant: NEGRO : 1945 Requested By: Deandre Calix Order Number: [id number] Reading MD: Deandre Calix Measurements Intervals [place] Rate: 112 P: 32 W[place]: 165 QRS: 19 QRSD: 93 T: 0 QT: 309 QTc: 422 Interpretive Statements SINUS TACHYCARDIA POSSIBLE LEFT ATRIAL ENLARGEMENT LOW QRS VOLTAGE IN EXTREMITY LEADS ANTEROSEPTAL MYOCARDIAL INFARCTION , OF INDETERMINATE AGE Compared to ECG 02/04/2025 12:27:41 Myocardial infarct finding now present Sinus rhythm no longer present Ventricular premature complex(es) no longer present T-wave abnormality no longer present /store/S0/[id number].pdf
[2025-02-05] MEDS: MORPHINE SULF INJ 4 MG/ML VIAL 2 MG IVP (15:08)
[2025-02-05] MEDS: Heparin/D5w 25K 250 ML Ivpb 25,000 UNIT/250 ML BAG 9.759 UNIT IV (15:09)
--- NOTE | 2025-02-05 15:18 | PC.NURSE ---
Restarted heparin at 12 units/kg per hour. No bolus given per Dr. Dugan.
[2025-02-05] MEDS: AZITHROMYCIN INJ 500 MG in SODIUM CHLORIDE 0.9% 250 ML 250 ML 250 MG IV (16:26)
[2025-02-05] MEDS: cefTRIAXone/D5w 1gm IV premix 1 GM/50 ML BAG IV (16:27)
--- NOTE | 2025-02-05 16:32 | ESDS_ITS ---
<Statement entered by Deandre Calix MD - 02/05/25 16:55> Patient was seen and evaluated at bedside this morning. No acute overnight event. Patient was admitted last night for NSTEMI likely type I versus type II initially. Patient's troponins initially were 21 and he was started on heparin drip per ACS protocol. This morning patient underwent cardiac catheterization by eligibility analyst and required transfer for CABG. Patient after heart cath was experiencing 10 out of 10 chest pain with fist sign and his heparin drip was restarted and a total of 4000 units of heparin bolus was given as per cardiology recommendations. Patient was also given morphine and placed on oxygen with help improve his symptoms. EKG was also ordered at this time. At this time patient will be transferred to a tertiary care center for higher level care. I have reviewed the note and agree with the resident's assessment & plan with exceptions as above. I have personally reviewed labs, imaging, home meds/prior records, examined the patient, formulated and discussed management plan with my attending Deandre Calix PGY2 Disclaimer: Even though this this note was dictated by speech recognition and even though it was carefully revised there may still be minor errors in brilliandeer lopper due to voice recognition software. Planned Discharge Date 02/05/25 DS: Providers Provider Date of admission: 02/04/25 18:06 Primary care physician: Aydin Wallace MD Admitting Provider: Carlin Byrd DO Attending Provider on Admission: Carlin Byrd DO Consults: 02/04/25 19:21 Consult to Cardiology Stat Comment: Consulting Provider: Johnathon Aviles 02/05/25 11:57 Referral - Vacuum Cooker Operator Routine Service Needed for Transfer: Cardiovascular/Thoracic Surg Attending Provider on DC: Shukri Duong MD Discharging Provider: Shukri Duong MD DS: Diagnosis Problem List Completed Was Problem List Reviewed/Reconciled?: Yes Hospital Course Hospital Course Hospital course: Summary: oLbito Boswell 79M pmhx significant for diabetes (diet controlled) who presents to [facility] ED on 02/04 with 5 days of shortness of breath, admitted for NSTEMI, underwent LHC on 02/05 showing 99% stenosis of LAD with EF 20-25%. Patient presented with acute worsening SOB, however denies chest pain, pressure or tightness at rest or on exertion. Chest pain present with deep inspiration, midsternal, non radiating, however no pain at rest or exertion. On admission, troponins were 21, down trended to 19 and BNP 2339 with no history of CHF. EKG showed Q waves with minimal <[address] elevations in leads V1-V3. Frequent PVCs. Minimal ST depressions <1 mm in leads I, aVL, V5-V6. Patient was placed on heparin drip, loading dose of aspirin and high intensity statin. Cardiology consulted and patient's symptoms likely late presenting [place]. 02/04 TTE done showing normal LV size. Severely decreased LV function with an EF of around 20 to 25%. Akinetic apex with severe hypokinesis of the mid to apical anterior, anterolateral, apical septal and inferior olvera. Takotsubo picture versus LAD disease. Diastolic dysfunction grade 1. Normal RV size and function. Normal RVSP 29 mmHg with RAP 3. Moderately dilated LA. Normal RA size. No pericardial effusion. Mild mitral annular calcification with mild to moderate MR Mild aortic valve sclerosis without stenosis. Mild tricuspid regurgitation and trace aortic valve regurgitation. Left heart cath was performed on 02/05 results as below: 1. NSTEMI with a peak troponin of 22. Late presenting [place]: LHC showed severe multivessel disease with severe 99% stenosis of the LAD with THOMAS II to THOMAS-3 flow, severe 90% stenosis of small to medium proximal D1, moderate to severe 60 to 70% stenosis of the proximal LCx, 100% INTERLINE CLERK occlusion of the proximal RCA with excellent right to right and [id number] collaterals. Rest of the arteries shows only mild disease. 2. LVEF is severely decreased at 25 to 30% with regional wall motion abnormalities as mentioned above. LVEDP severely elevated at 33 mmHg. There was no significant transvalvular aortic gradient. Post cath, patient reported 10 out of 10 sternal chest pain, repeat EKG concerning for new STEMI. Patient is to be transferred for emergent CABG. Of note, chest x-ray showed early pneumonia at both bases however no leukocytosis and patient denies any fever or upper respiratory illness, and was started on broad-spectrum antibiotics of azithromycin and ceftriaxone. On transfer, patient is hemodynamically stable, on heparin drip with pain controlled with morphine. Imaging: CXR early PNA both bases. Hospital Diagnoses: #NSTEMI, type I #?Bilateral PNA #NIDDM2 Tamika Ann, DO Internal Medicine, PGY-1 Time Spent with Patient Time attestation: Total time spent providing and/or coordinating discharge services: Time spent: Greater than 30 minutes Exam Vital Signs Temp Pulse Resp BP Pulse Ox O2 Del Method 97.8 F 114 H 20 110/78 95 Room Air 02/05/25 12:45 02/05/25 12:45 02/05/25 12:45 02/05/25 12:45 02/05/25 12:45 02/05/25 12:45 Narrative Exam GENERAL: AOx3, elderly male, distress 2/2 chest pain HEENT: mucous membranes moist, bilateral sclera anicteric CARDIOVASCULAR: regular rate and rhythm, S1/S2 present, no murmurs appreciated PULMONARY: clear to auscultation bilaterally, no rales/rhonchi/wheezes ABDOMINAL: soft, non-tender, non-distended, no rebound/guarding, bowel sounds present EXTREMITIES: no peripheral edema SKIN: warm and dry, intact, no rashes NEURO: CN II-XII grossly intact, no focal deficits, alert, following commands Discharge Plan Plan Patient Disposition: [place] [facility] Pt Being Transferred to: [facility] Service Needed for Transfer: Cardiovascular/Thoracic Surg Patient condition on transfer: Stable Prescriptions/Referrals Prescriptions/Med Rec: No Action No Known Home Medications Referrals: Aydin Wallace MD [Primary Care Provider, [facility]] Patient/Caregiver Discharge Instructions Print Language: Armenian Stand Alone Forms: Lamar Award Info., Patient Portal Info Letter Discharge Order Discharge Orders: Discharge (Routine); Ordered 02/05/25 Ordered By: Dave Wallace Quality Discharge Quality Measures VTE prophylaxis Attestestation MD Attestation I reviewed labs, imaging, EKG, home medications and prior available records. Face to face evaluation was performed by me. I have personally examined the patient and discussed assessment and plan with the IM team. I reviewed the resident note and agree with the plan with exceptions as below. Non-STEMI, type I Essential hypertension Possible community-acquired pneumonia Lactic acidosis Continue aspirin and atorvastatin Status post cardiac catheterization that showed multivessel CAD and severely reduced ejection fraction of 20 to 25% Cardio recommended transfer to a [facility] for open heart surgery Covering with ceftriaxone/azithromycin Trend lactic acid Time spent is 45 minutes. More than 50% of the time was spent on patient education and coordination of care.
--- NOTE | 2025-02-05 16:44 | ESPR_ITS ---
Documentation for date of: 02/05/25 Subjective Subjective Interval history: Patient was seen and assessed at bedside. Patient reports difficulty sleeping and improvement in pain with inspiration however denies any chest pain, shortness of breath, palpitations. Was given heparin 2000 units overnight due to non elevated PTT, repeat was 47.8. Hemoglobin is stable, platelets 127. Creatinine 1.1. A1c 6.0, magnesium 2.0. Liver enzymes downtrending. TSH 4.55. BP was 113/78, heart rate continued to be in the low 100s. Patient underwent cardiac cath this morning. Exam Vital Signs Temp Pulse Resp BP Pulse Ox O2 Del Method O2 Flow Rate 97.4 F 102 H 20 115/83 99 Nasal Cannula 2 02/05/25 16:00 02/05/25 16:00 02/05/25 16:00 02/05/25 16:00 02/05/25 16:00 02/05/25 16:00 02/05/25 16:00 Narrative Exam Physical Exam General: Awake and in no acute distress. Conversational and non-toxic appearing. Pleasant elderly male. HEENT: Normocephalic, atraumatic, mucous membranes moist. Heart: Tachycardic. Regular rate and rhythm, normal S1 and S2, no murmurs. Lungs: Clear to auscultation with no wheezing or crackles. Abdomen: Soft, nondistended, nontender, positive bowel sounds. No guarding or rebound tenderness. Neurologic: Alert and oriented x3, no gross neurological deficit, and patient able to move all 4 extremities. Extremities: No edema. Skin: No rash or ecchymoses. Objective Labs 02/05/25 05:50 02/05/25 05:00 Labs: Laboratory Results - last 24 hr 02/04/25 02/04/25 02/04/25 17:52 19:30 22:23 WBC RBC Hgb Hct MCV MCH MCHC RDW Std Deviation Plt Count Neut % (Auto) Lymph % (Auto) Motley % (Auto) Eos % (Auto) Baso % (Auto) Neut # (Auto) Lymph # (Auto) Motley # (Auto) Eos # (Auto) Baso # (Auto) Immature Gran # (Auto) Absolute Nucleated RBC Immature Gran % Nucleated RBC % PT INR APTT 28.8 Sodium Potassium Chloride Carbon Dioxide Anion Gap BUN Creatinine Estim Creat Clear Calc eGFR BUN/Creatinine Ratio Glucose Estimated Ave Glu mg/dL Hemoglobin A1c Calculated Osmolality Lactic Acid 4.3 H* 3.2 H Calcium Corrected Calcium Phosphorus Magnesium Total Bilirubin AST ALT Alkaline Phosphatase Troponin I < 0.020 D 19.338 H* D Total Protein Albumin Globulin Albumin/Globulin Ratio Triglycerides Cholesterol LDL Cholesterol, Calc HDL Cholesterol Cholesterol/HDL Ratio TSH Free T4 02/05/25 02/05/25 02/05/25 05:00 05:50 12:00 WBC 7.6 RBC 3.90 L Hgb 13.0 L Hct 38.2 L MCV 98 MCH 33.3 MCHC 34.0 RDW Std Deviation 49.4 H Plt Count 127 L D Neut % (Auto) 81 H Lymph % (Auto) 14 Motley % (Auto) 5 Eos % (Auto) 0 Baso % (Auto) 0 Neut # (Auto) 6.1 Lymph # (Auto) 1.1 Motley # (Auto) 0.4 Eos # (Auto) 0.0 Baso # (Auto) 0.0 Immature Gran # (Auto) 0.01 H Absolute Nucleated RBC 0.00 Immature Gran % 0 Nucleated RBC % 0 PT 12.1 INR 1.1 APTT 47.8 H D 40.6 H Sodium 138 Potassium 4.4 D Chloride 102 Carbon Dioxide 19.3 L Anion Gap 17 H BUN 32 H Creatinine 1.1 Estim Creat Clear Calc 53.6 L eGFR > 60 BUN/Creatinine Ratio 29 H Glucose [address] Glu mg/dL 126 Hemoglobin A1c 6.0 Calculated Osmolality 288 Lactic Acid 3.0 H 3.0 H Calcium 10.3 Corrected Calcium 10.3 H Phosphorus 3.5 Magnesium 2.0 Total Bilirubin 0.9 AST 73 H ALT 51 H Alkaline Phosphatase 101 D Troponin I Total Protein 7.3 Albumin 4.7 Globulin 2.6 Albumin/Globulin Ratio 1.8 Triglycerides 90 Cholesterol 305 H LDL Cholesterol, Calc 230 H HDL Cholesterol 57 Cholesterol/HDL Ratio 5.4 TSH 4.55 Free T4 1.46 Quality Measures Quality Measures VTE prophylaxis Advance care planning discussed with:: patient Assessment & Plan Assessment Current Active Medications: Generic Name Dose Route Start Last Admin Trade Name Freq PRN Reason Stop Dose Admin Acetaminophen 650 mg 02/04/25 18:06 Acetaminophen 325 Mg Tablet PO 03/06/25 18:05 Q6H PRN Fever >100.4 Hydrocodone Bitart/Acetaminophen 1 tab 02/04/25 18:06 Hydrocodone/Apap 5/325 Tablet PO 02/09/25 18:05 Q4HR PRN PAIN SCALE 4-6 (Moderate Aspirin 81 mg 02/05/25 09:00 02/05/25 08:32 Aspirin Ec 81 Mg Tabec PO 03/07/25 08:59 Not Given QDAY MARCELINO Atorvastatin Calcium 80 mg 02/04/25 21:00 02/04/25 21:49 Atorvastatin Calcium 20 Mg Tablet PO 03/06/25 20:59 80 mg HS MARCELINO Administration Azithromycin 500 mg/ Sodium 250 mls @ 250 mls/hr 02/05/25 09:00 02/05/25 16:26 Chloride IV 02/12/25 08:59 250 mls/hr QDAY MARCELINO Administration Ceftriaxone Sodium/Dextrose 1 gm in 50 mls @ 100 mls/hr 02/05/25 09:00 02/05/25 16:27 Rocephin/D5w 1gm Iv Premix IV 02/12/25 08:59 100 mls/hr QDAY MARCELINO Administration Heparin Sodium/Dextrose 25,000 unit in 250 mls @ 9.759 mls/hr 02/05/25 14:45 02/05/25 15:09 Heparin In D5w Ivpb IV 02/19/25 14:44 12 units/kg/hr .Q24H MARCELINO 9.759 mls/hr Protocol Administration 12 UNITS/KG/HR Ondansetron HCl 4 mg 02/04/25 18:06 Ondansetron Inj 2 Mg/Ml Inj 2 Ml IVP 03/06/25 18:05 Q6H PRN NAUSEA OR VOMITING Protocol Pantoprazole Sodium 40 mg 02/04/25 18:15 02/05/25 08:32 Pantoprazole Inj 40 Mg Vial IVP 03/06/25 18:14 Not Given QDAY MARCELINO Plan Patient is an 79 year old male with PMH of diabetes, HTN (never medicated), remote history of panic attacks, OA, and chronic back pain who presents on 02/04 for worsening shortness of breath for the past 3-4 days, admitted for NSTEMI with elevated troponin of 21. #NSTEMI type 1 #Late presenting [place] given the q waves with minimal ST elvation < 1 mm and decreasing troponins.- Severe multivessel CAD by [facility] on 02/05/2025 #New onset severe systolic CHF with an EF of 20-25% Presented with worsening shortness of breath for the past 3-4 days. Pain with deep inspiration but denies chest pain, chest pressure, or chest tightness. BP 111/73 HR 96 -> 117, saturating well on room air. No lower extremity swelling on exam. Troponin 21, repeat 5 hours later was negative, repeat 19.88. BNP 2339. No known history of HF. EKG showed Q waves with minimal <[address] elevations in leads V1-V3. Frequent PVCs. Minimal ST depressions <1 mm in leads I, aVL, V5-V6. S/p IV Lasix 40 x1 however appears that patient is dehydrated (has not much fluid or oral intake for the past 3-4 days). Echo 02/05 shows Normal LV size. Severely decreased LV function with an EF of around 20 to 25%. Akinetic apex with severe hypokinesis of the mid to apical anterior, anterolateral, apical septal and inferior olvera. Takotsubo picture versus LAD disease. Diastolic dysfunction grade 1. Normal RV size and function. Normal RVSP 29 mmHg with RAP 3. Moderately dilated LA. Normal RA size. No pericardial effusion. Mild mitral annular calcification with mild to moderate MR. Mild aortic valve sclerosis without stenosis. Mild tricuspid regurgitation and trace aortic valve regurgitation. Cardiac cath showed LHC showed severe multivessel disease with severe 99% stenosis of the LAD with THOMAS II to THOMAS-3 flow, severe 90% stenosis of small to medium proximal D1, moderate to severe 60 to 70% stenosis of the proximal LCx, 100% CORPORATE RELATIONS DIRECTOR occlusion of the proximal RCA with excellent right to right and [id number] collaterals. Rest of the arteries shows only mild disease. Tolerated procedure well. ?Aspirin x 1 after procedure ? Heparin bolus plus IV heparin drip 3 to 4 hours after procedure ?Patient does have a history of hypertension diabetes mellitus and has severe multivessel disease and hence recommended surgery as the patient is hemodynamically stable.. Discussed with cardiothoracic surgeon Dr. Jasen Ortiz at [facility] for further evaluation of CABG. If patient is not a surgical candidate then plan to do high risk PCI with LVAD or left ventricular assist device-Impella to perform the multivessel PCI CABG and aggressive medical treatment and aggressive risk factor modification. ?Recommend to restart the heparin drip in 4 hours and continue aspirin 81 mg once daily along with high intensity statin Lipitor 80 mg once daily. No beta- arturo for now. - Lasix IV 40 mg BID as LVEDP is 34 mm hg ?Request urgent stat transfer to [facility] - Recommended no lifting more than 5 pounds for next 7-10 days and follow up in my office in 7 days after surgery.. # ? PNA #Lactic acidosis, improving Presenting with shortness of breath but denies fever, chills, and cough. No recent sick contacts. WBC WNL, procal negative. Lactic acid 4.3, improved. CXR showed possible early PNA but upon review appears to be clear. - Treating empirically w abx by primary team #DM2 Fasting glucose at home 101. Checks about every 1-2 weeks. Previously on metformin but now controlled on low carb diet. - Diet low carb consistent - NPO instructions above #OA #Chronic back pain - Tylenol as needed #HTN #Remote history of panic attacks Not on any meds. Thank you for your consultation, please do not hesitate to reach out if you have any question or concern Patient plan of care was discussed with the attending physician, Dr. Aviles. Beatrice Ann, PGY-1 Attending Provider Attestation/Addendum I have personally seen and examined the patient separately on the above date of service and discussed the plan of care with the resident. I reviewed the resident Dr. Beatrice Ann consultation progress note and agree with the resident findings and plan in the note above and have also edited the documentation to reflect my findings and plan. Johnathon Aviles M.D. Interventional Cardiology
--- NOTE | 2025-02-05 18:39 | PC.NURSE ---
Pt transferred [facility] at 1838. Report given Hazel Mendez at [facility]. Belongings sent. Report given to reach [facility].
== END 2025-02-05 18:38 | disposition short-term general hospital (02) | DRG 280 ==
LOC: SERX 16:18 → SERHOLD 18:42 → S2NX 20:53
PROVIDERS: Internal Medicine Cardiovascular Disease; Nurse Practitioner Family; Student in an Organized Health Care Education/Training Program; Admitting Provider Student in an Organized Health Care Education/Training Program; Emergency Provider Family Medicine; PCP Family Medicine; Visit Provider Student in an Organized Health Care Education/Training Program
DX: I21.4 Non-ST elevation (NSTEMI) myocardial infarction (principal); J18.9 Pneumonia, unspecified organism; I50.20 Unspecified systolic (congestive) heart failure; I49.3 Ventricular premature depolarization; I34.81 Nonrheumatic mitral (valve) annulus calcification; I35.8 Other nonrheumatic aortic valve disorders; I11.0 Hypertensive heart disease with heart failure; I25.10 Atherosclerotic heart disease of native coronary artery without angina pectoris; Z79.82 Long term (current) use of aspirin
CPT/HCPCS: 36415; 71046; 80053; 80061; 81001; 82728; 83036; 83605; 83735; 83880; 84100; 84145; 84439; 84443; 84484; 85025; 85610; 85730; 87811; 93005; 93306; 96365; 96366; 96375; 99284; J0456; J0461; J0696; J1643; J1644; J1938; J2250; J2270; J2312; J2371; J2470; J3010; J3490; J7050; J7120; A9270; J2305